=== PATIENT | female | born 1965 ===

== ENCOUNTER 2017-11-23 07:11 | Day surgery (SDC) | payer OTHER ==
[2016-02-07 10:08] VITALS: BMI 29.7
[2017-11-23] MEDS ORDERED: Midazolam 2 MG/2 ML VIAL ONE (09:40)
[2017-11-23] MEDS ORDERED: Propofol 10 mg/ml Inj (20 ML) ONE ×2 (09:40→09:57)
[2017-11-23 10:45] VITALS: TEMP 98.1
[2017-11-23 11:32] VITALS: BP 110/63; PULSE 75; RESP 16; O2SAT 99
== END 2017-11-23 11:27 | disposition home or self-care (01) ==
LOC: C.ENDO 07:11
PROVIDERS: ATTEND Internal Medicine Gastroenterology
DX: Z12.11 Encounter for screening for malignant neoplasm of colon (principal); R10.13 Epigastric pain; R63.4 Abnormal weight loss; K29.70 Gastritis, unspecified, without bleeding; B96.81 Helicobacter pylori [H. pylori] as the cause of diseases classified elsewhere; K64.8 Other hemorrhoids; K31.7 Polyp of stomach and duodenum; E03.9 Hypothyroidism, unspecified; E11.42 Type 2 diabetes mellitus with diabetic polyneuropathy; E78.5 Hyperlipidemia, unspecified; Z79.899 Other long term (current) drug therapy
CPT/HCPCS: 43239; 43251; 45378; 82948; 88305; J2001; J2250; J2704

== ENCOUNTER 2017-12-05 22:02 | Inpatient (IN) | payer OTHER ==
[2017-12-05 22:02] VITALS: BMI 29.7
[2017-12-05] MEDS ORDERED: Sodium Chloride 0.9% 1,000 ML IV ONE (22:39)
[2017-12-05] MEDS ORDERED: Sodium Chloride 0.9% 1,000 ML ONE (22:48)
[2017-12-05 23:17] LABS: BASO % 0.5 % (0.0-2.0); EOS # 0.4 K/uL (0.0-0.7); EOS % 5.5 % (0.0-4.0); HEMOGLOBIN 14.8 g/dL (11.0-16.0); LYMPH # 2.1 K/uL (1.0-4.3); LYMPH % 25.6 % (20.0-40.0); MEAN CELL VOLUME 85.5 fL (81.0-99.0); MEAN CORPUSCULAR HEMOGLOBIN 29.6 pg (27.0-31.0); MEAN CORPUSCULAR HGB CONC 34.7 g/dL (33.0-37.0); MEAN PLATELET VOLUME 9.7 fL (7.2-11.7); MONO # 0.5 K/uL (0.0-0.8); MONO % 6.8 % (0.0-10.0); NEUT # 4.9 K/uL (1.8-7.0); NEUT % 61.6 % (50.0-75.0); NRBC % 0.4 % (0.0-2.0); RBC 4.98 Mil/uL (3.80-5.20)
[2017-12-05 23:27] LABS: ALB/GLOB RATIO 1.5 (1.0-2.1); ALBUMIN 4.6 g/dL (3.5-5.0); ALT/SGPT 46 U/L (9-52); AST/SGOT 28 U/L (14-36); BLOOD UREA NITROGEN 14 mg/dL (7-17); CALCIUM 9.6 mg/dl (8.6-10.4); GFR AFRICAN-AMERICAN > 60; GFR NON-AFRICAN AMERICAN > 60
--- NOTE | 2017-12-05 23:35 | C.PDOC ---
Time Seen by Provider: 12/05/17 22:28 Chief Complaint (Nursing): Chest Pain History Per: Patient, Family Onset/Duration Of Symptoms: Days (about 1 week) Current Symptoms Are (Timing): Still Present Severity: Moderate Quality: "Pain" Associated Symptoms: Dyspnea Modifying Factors: Other Indicated Below Additional History Per: Prior Records Past Medical History Reviewed: Historical Data, Nursing Documentation, Vital Signs Vital Signs: Last Vital Signs Temp 98.2 F 12/05/17 22:06 Pulse 105 H 12/05/17 22:06 Resp 16 12/05/17 22:06 BP 132/92 H 12/05/17 22:06 Pulse Ox 97 12/05/17 23:36 - Medical History PMH: Arthritis, Diabetes, Gastritis, HTN, Hypercholesterolemia, Hypothyroidism, Kidney Stones Surgical History: Appendectomy, Endoscopy - [facility] Procedures CLOSED ENDOSCOPIC BIOPSY OF LARGE INTESTINE (10/03/14) D & C NEC (03/16/01) ESOPHAGOGASTRODUODENOSCOPY [EGD] W/CLOSED BIOPSY (09/26/14) INJECT/INFUSE NEC (04/05/14) LAPAROSCOP LYSIS-PERITONEAL ADHES (06/07/02) OCCUPATIONAL THERAPY (04/23/12) OTH LAPAROSCOP LOCAL EXCIS/DESTRUCT OVARY (03/16/01) OTHER JOINT MOBILIZATION (10/05/12) PHYSICAL THERAPY NEC (04/23/12) Family History: States: Unknown Family Hx - Social History Hx Tobacco Use: No Hx Alcohol Use: No Hx Substance Use: No - Immunization History Hx Tetanus Toxoid Vaccination: Yes Hx Influenza Vaccination: Yes Hx Pneumococcal Vaccination: No Review Of Systems Except As Marked, All Systems Reviewed And Found Negative. Constitutional: Negative for: Fever, Weakness Cardiovascular: Positive for: Chest Pain Respiratory: Negative for: Cough Gastrointestinal: Negative for: Vomiting Musculoskeletal: Negative for: Neck Pain, Back Pain Skin: Negative for: Rash Neurological: Negative for: Weakness, Numbness, Seizures Physical Exam - Physical Exam Appears: Non-toxic, No Acute Distress Skin: Normal Color, Warm, Dry, No Rash Head: Atraumatic, Normacephalic Eye(s): bilateral: Normal Inspection, PERRL, EOMI Neck: Normal ROM, Supple Chest: Symmetrical, No Deformity Cardiovascular: Rhythm Regular Respiratory: Normal Breath Sounds, No Accessory Muscle Use Gastrointestinal/Abdominal: Soft, No Tenderness Back: No CVA Tenderness Extremity: Normal ROM, No Pedal Edema, No Calf Tenderness Neurological/Psych: Oriented x3, Normal Motor, Normal Sensation ED Course And Treatment - Laboratory Results Result Diagrams: 12/05/17 23:07 12/05/17 23:07 Lab Interpretation: Abnormal Interpretation Of Abnormal: Hyperglycemia ECG: Interpreted By Me, Viewed By Me ECG Rhythm: Sinus Rhythm, Nonspecific Changes Rate From EC O2 Sat by Pulse Oximetry: 97 Pulse Ox Interpretation: Normal - Radiology CXR: Interpreted by Me, Viewed By Me CXR Interpretation: Yes: No Acute Disease Progress - Interventions Interventions:: Observation, Intravenous fluid - Medications Administered Oral: Aspirin - Data Reviewed Data Reviewed: Lab, Diagnostic imaging, EKG, Old records - Patient Status Patient status: Partially improved - Continuity of Care Discussed patient case with:: Patient, Family-HIPPA compliant, ED Nurse, Covering for PMD - Patient Plan Patient Plan: Admission, Telemetry Disposition Discussed With DrKennedy: Betty Cunningham (Covering) Comment: He accepted pt on his service and gave admitting orders to the nurse. Doctor Will See Patient In The: Hospital Counseled Patient/Family Regarding: Studies Performed, Diagnosis - Disposition Disposition: HOSPITALIZED Disposition Time: 23:45 Condition: FAIR - POA Present On Arrival: Poor Glycemic Control - Clinical Impression Clinical Impression: Chest pain, Uncontrolled type 2 diabetes mellitus with hyperglycemia
[2017-12-05 23:38] LABS: B-TYPE NATRIURETIC PEPTIDE 20.4 pg/mL (0-900)
[2017-12-06] MEDS: (Novolin R) Insulin Human Regular 100 units/ml vial SC SCH ×4 (06:34→22:28)
--- NOTE | 2017-12-06 07:46 | RAD ---
Chest x-ray single frontal view History: Chest pain. Comparison: 04/01/2012 Findings: Mild venous congestion. Heart size within normal limits. Degenerative and postsurgical changes within the spine. Impression: Mild venous congestion.
[2017-12-06 08:04] LABS: CK-MB 0.38 ng/mL (0.0-3.38)
[2017-12-06] MEDS: Enoxaparin 40 mg Syringe SC SCH ×2 (09:41→17:10)
[2017-12-06] MEDS: GlipiZIDE 10 mg SR Tab PO SCH ×2 (09:42→17:09)
[2017-12-06] MEDS: Levothyroxine 125 MCG TAB PO SCH (09:43)
[2017-12-06] MEDS ORDERED: Home Med 1 UNIT (Omeprazole [Omeprazole] 40 MG) PO SCH (10:00)
[2017-12-06] MEDS ORDERED: CHOLECALCIFEROL PO SCH (10:00)
[2017-12-06] MEDS ORDERED: Home Med 1 UNIT (Atorvastatin [Lipitor] 20 MG) PO SCH (10:00)
[2017-12-06 15:08] LABS: CK-MB 0.43 ng/mL (0.0-3.38)
--- NOTE | 2017-12-06 15:44 | CP.PCM.HP ---
History of Present Illness - History of Present Illness History of Present Illness: COMPREHENSIVE HISTORY & PHYSICAL EXAM Patient is admitted from the emergency room complaining of atypical chest pain for 1 week and high sugars. Patient was seen by her private medical doctor found out patients blood sugar of 600 and referred to the ER. In the emergency room the blood sugar was 537 with no ketones and no acidemia with normal pH. EKG was normal first set of cardiac enzymes negative patient was admitted for further treatment HPI PAST HIST. History of chr-ixbpori-iobjwiupy type 2 diabetes and hypertension PERSONAL HIST: Smoking. N Alcohol. N Allergy N Travel_- . FAMILY HIST : ROS : Constitutional: Negative for weight change, chills, night sweats, fatigue and usage of assist device. Eyes: Negative for redness, swelling, itching, discharge, vision changes, blurry vision, double vision, glaucoma, cataracts, Ears: Negative for hearing loss, ringing, , tinnitus, vertigo Nose: Negative for rhinorrhea, stuffiness, sniffing, itching, postnasal drip, discoloration, nasal congestion and epistaxis. Throat: Negative for throat clearing, sore throat, hoarseness, difficulty swallowing and difficulty speaking. Respiratory: Negative for cough, , sputum production, chest tightness, wheezing, pleuritic chest pain ,daytime somnolence, chronic cough, hemoptysis, snoring at night, Cardiovascular: Negative for, PND, Edema of legs, leg cramps, angina, claudication, , irregular heartbeat, Neurology: Negative for irritability, muscle weakness, numbness and tingling, seizures, tremors, migraines, slurred speech, syncope, memory loss, mood changes , recurrent headaches Gastrointestinal: Negative for difficulty swallowing, diarrhea, constipation, black stools, rectal bleeding, nausea, flatulence, reflux, poor appetite, changes in bowel habits, abdominal pain Genitourinary: Negative for frequent urination, hematuria, discharge, incontinence, urinary retention, frequent UTI, Psychiatric: Negative for depression, anxiety/panic, suicidal tendencies, Musculoskeletal: Negative for swollen joints, back pain, , neck pain, morning stiffness of joints, . Skin: Negative for rash, ulcers, itching, dry skin and pigmented lesions. P/E: Constitutional: Appears stated age and in no apparent distress. Head: Normocephalic. Ears: External ear canals patent without inflammation. Tympanic membranes intact with normal light reflex and landmark. Eyes: Pupils are central, bilaterally equal, symmetrical and reacts to light with normal movements and no icterus or pallor. Nose: External nares are patent. Mucosa is pink Mouth-Throat: Good general appearance and condition. No post-pharyngeal/oropharyngeal erythema and tonsillar hypertrophy. Good dental hygiene. Neck-Lymphatic: Neck is supple with normal ROM, no thyromegaly, lymph nodes or masses. JVD is normal with no carotid bruit. Lungs: Clear to percussion and auscultation with bilateral normal air entry. Cardiovascular: S1 and S2 are normal with no murmurs, gallops and rub. GI Exam: No hepatomegaly. Abdomen is soft and non-tender. No Organomegaly , masses or hernias are evident and bowel sounds are normal and active. Neurology: Higher function and all cranial nerves intact, with no gross motor or sensory deficit. Superficial and deep reflexes are normal with downwards planters. No cerebellar deficit with normal gait. Musculoskeletal: No tender spots with normal curvature of the spine with no swelling or restricted ROM of the small and large joints. Extremities: Homans sign absent. Intact pulses with no pitting edema, calf tenderness or skin color changes. Skin: No rash, eruptions or abnormal skin pigmentation LAB/RADIOLOGY: ASSESMENT : Uncontrolled blood sugars with no acidemia. Atypical chest pain rule out ischemic heart disease PLAN: Cardiac workup, EKG echo and outpatient stress test. Continue [id number]-sih-fkjct insulin coverage and if the sugars are high we will add Lantus Present on Admission - Present on Admission Any Indicators Present on Admission: No Past Patient History - Past Medical History & Family History Past Medical History?: Yes - Past Social History Smoking Status: Never Smoked - CARDIAC Hx Cardiac Disorders: Yes Hx Hypercholesterolemia: Yes Hx Hypertension: Yes - PULMONARY Hx Respiratory Disorders: No - NEUROLOGICAL Hx Neurological Disorder: No - HEENT Hx HEENT Problems: No - RENAL Hx Chronic Kidney Disease: Yes Hx Kidney Stones: Yes - ENDOCRINE/METABOLIC Hx Endocrine Disorders: Yes Hx Diabetes Mellitus Type 2: Yes Hx Hypothyroidism: Yes - HEMATOLOGICAL/ONCOLOGICAL Hx Blood Disorders: No - INTEGUMENTARY Hx Dermatological Problems: No - MUSCULOSKELETAL/RHEUMATOLOGICAL Hx Musculoskeletal Disorders: Yes Hx Arthritis: Yes Hx Back Pain: Yes Hx Falls: No Hx Herniated Disk: Yes - GASTROINTESTINAL Hx Gastrointestinal Disorders: Yes Hx Gastritis: Yes - GENITOURINARY/GYNECOLOGICAL Hx Genitourinary Disorders: No - PSYCHIATRIC Hx Psychophysiologic Disorder: No Hx Substance Use: No - SURGICAL HISTORY Hx Surgeries: Yes Hx Appendectomy: Yes Hx Herniorrhaphy: Yes Hx Joint Replacement: Yes Hx Orthopedic Surgery: Yes - ANESTHESIA Hx Anesthesia: Yes Hx Anesthesia Reactions: No Hx Malignant Hyperthermia: No Meds Allergies/Adverse Reactions: Allergies Allergy/AdvReac Type Severity Reaction Status Date / Time morphine Allergy Intermediate RASH Verified 12/05/17 22:13 Results - Vital Signs Recent Vital Signs: Last Vital Signs Temp 97.6 F 12/06/17 07:00 Pulse 83 12/06/17 07:35 Resp 20 12/06/17 07:00 BP 120/80 12/06/17 07:00 Pulse Ox 99 12/06/17 07:00 - Labs Result Diagrams: 12/05/17 23:07 12/05/17 23:07 Labs: Laboratory Results - last 24 hr 12/05/17 12/05/17 12/05/17 22:19 23:07 23:07 WBC 8.0 RBC 4.98 Hgb 14.8 Hct 42.6 MCV 85.5 MCH 29.6 MCHC 34.7 RDW 13.0 Plt Count 266 MPV 9.7 Neut % (Auto) 61.6 Lymph % (Auto) 25.6 [place] % (Auto) 6.8 Eos % (Auto) 5.5 H Baso % (Auto) 0.5 Neut # (Auto) 4.9 Lymph # (Auto) 2.1 [place] # (Auto) 0.5 Eos # (Auto) 0.4 Baso # (Auto) 0.0 Sodium 141 Potassium 4.0 Chloride 101 Carbon Dioxide 25 Anion Gap 19 BUN 14 Creatinine 0.7 Est GFR ( Amer) > 60 Est GFR (Non-Af Amer) > 60 POC Glucose (mg/dL) 344 H Random Glucose 361 H Calcium 9.6 Total Bilirubin 0.6 AST 28 ALT 46 Alkaline Phosphatase 128 H Total Creatine Kinase CK-MB (Mass) Troponin I < 0.0120 NT-Pro-B Natriuret Pep 20.4 Total Protein 7.6 Albumin 4.6 Globulin 3.1 Albumin/Globulin Ratio 1.5 B-Hydroxybutyrate 0.13 12/06/17 12/06/17 12/06/17 00:17 06:25 07:15 WBC RBC Hgb Hct MCV MCH MCHC RDW Plt Count MPV Neut % (Auto) Lymph % (Auto) [place] % (Auto) Eos % (Auto) Baso % (Auto) Neut # (Auto) Lymph # (Auto) [place] # (Auto) Eos # (Auto) Baso # (Auto) Sodium Potassium Chloride Carbon Dioxide Anion Gap BUN Creatinine Est GFR ( Amer) Est GFR (Non-Af Amer) POC Glucose (mg/dL) 277 H 423 H* Random Glucose Calcium Total Bilirubin AST ALT Alkaline Phosphatase Total Creatine Kinase 37 CK-MB (Mass) 0.38 Troponin I < 0.0120 NT-Pro-B Natriuret Pep Total Protein Albumin Globulin Albumin/Globulin Ratio B-Hydroxybutyrate 12/06/17 12/06/17 11:42 14:41 WBC RBC Hgb Hct MCV MCH MCHC RDW Plt Count MPV Neut % (Auto) Lymph % (Auto) [place] % (Auto) Eos % (Auto) Baso % (Auto) Neut # (Auto) Lymph # (Auto) [place] # (Auto) Eos # (Auto) Baso # (Auto) Sodium Potassium Chloride Carbon Dioxide Anion Gap BUN Creatinine Est GFR ( Amer) Est GFR (Non-Af Amer) POC Glucose (mg/dL) 224 H Random Glucose Calcium Total Bilirubin AST ALT Alkaline Phosphatase Total Creatine Kinase 36 CK-MB (Mass) 0.43 Troponin I < 0.0120 NT-Pro-B Natriuret Pep Total Protein Albumin Globulin Albumin/Globulin Ratio B-Hydroxybutyrate
[2017-12-06] MEDS ORDERED: (Lantus) Insulin Glargine, Recombinant SC SCH (22:00)
[2017-12-07] MEDS: Levothyroxine 125 MCG TAB PO SCH ×2 (07:41→07:43)
[2017-12-07] MEDS: Pantoprazole 40 mg EC Tab PO SCH (09:51)
[2017-12-07] MEDS: Enoxaparin 40 mg Syringe SC SCH (09:51)
[2017-12-07] MEDS: (Novolin R) Insulin Human Regular 100 units/ml vial SC SCH ×4 (09:51→22:29)
[2017-12-07] MEDS: GlipiZIDE 10 mg SR Tab PO SCH ×2 (09:51→18:08)
[2017-12-07] MEDS ORDERED: Ergocalciferol 50,000 Intl Units Cap PO SCH (10:00)
--- NOTE | 2017-12-07 14:26 | CP.PCM.PN ---
Subjective - Date & Time of Evaluation Date of Evaluation: 12/07/17 Time of Evaluation: 14:25 - Subjective Subjective: CHIEF COMPLAINTS TODAY : No further chest pain. ROS. HEENT : N. Resp : No cough, wheezing ,pleuritic CP ,or hemoptysis Cardio : No anginal CP, PND, orthopnea, palpitation GI : No abd.pain, n/v ,diarrhea or GI bleeding . ROENTGENOLOGIST : No headache, vertigo, focal deficit. Musculoskel : No joint swelling , Derm : No rash Psych : Normal affect. Ext : No swelling ,calf pain PE. Pt. is alert awake in no distress. V.S As noted in the chart Head ,ear nose,throat and eyes : Normal. Neck : Supple with normal carotids. Lungs: Clear air entry. Heart : S1 & S2 normal with S4. No murmur. Abd : Soft non tender with normal bowel sounds. Neuro : Moves all ext. with no localized deficit. Ext : No edema with intact pulses.Non tender calves Derm : No rashes or decubitus ulcer. LABS/RADIOLOGY: ASSESSMENT/PLAN : Sugars are still elevated from 250-300 mg/dL. We will increase Lantus and add metformin. Echocardiogram showed normal left ventricular ejection fraction. Will get stress test as an outpatient Objective - Vital Signs/Intake and Output Vital Signs (last 24 hours): Temp Pulse Resp BP Pulse Ox 97.7 F 70 18 112/75 98 12/07/17 07:35 12/07/17 07:35 12/07/17 07:35 12/07/17 07:35 12/07/17 07:35 - Medications Medications: Current Medications Enoxaparin Sodium (Lovenox) 40 mg SC BID [facility] Last Admin: 12/07/17 09:51 Dose: 40 mg Ergocalciferol (Drisdol 50,000 Intl Units Cap) 1 cap PO QWK [facility] Last Admin: 12/07/17 09:51 Dose: 1 cap Gabapentin (Neurontin) 800 mg PO TID [facility] Last Admin: 12/07/17 09:51 Dose: 800 mg Glipizide (Glucotrol Xl) 10 mg PO BID [facility] Last Admin: 12/07/17 09:51 Dose: 10 mg Insulin Glargine (Lantus) 30 unit SC HS [facility] Insulin Human Regular (Novolin R) 0 unit SC ACHS [facility] PRN Reason: Protocol Last Admin: 12/07/17 12:09 Dose: 6 unit Levothyroxine Sodium (Synthroid) 125 mcg PO DAILY@0630 [facility] Last Admin: 12/07/17 07:43 Dose: Not Given Metformin HCl (Glucophage) 850 mg PO BID [facility] Pantoprazole Sodium (Protonix Ec Tab) 40 mg PO DAILY [facility] Last Admin: 12/07/17 09:51 Dose: 40 mg Rosuvastatin Calcium (Crestor) 10 mg PO HS [facility] Last Admin: 12/06/17 22:34 Dose: 10 mg - Labs Labs: 12/05/17 23:07 12/05/17 23:07
[2017-12-07] MEDS ORDERED: Enoxaparin 40 mg Syringe SC SCH (18:00)
[2017-12-07 19:49] VITALS: RESP 20
[2017-12-07] MEDS ORDERED: (Lantus) Insulin Glargine, Recombinant SC SCH (22:00)
[2017-12-08] MEDS: Levothyroxine 125 MCG TAB PO SCH (05:53)
[2017-12-08 08:57] VITALS: BP 115/75; PULSE 75; TEMP 97.8; O2SAT 98
[2017-12-08] MEDS: (Novolin R) Insulin Human Regular 100 units/ml vial SC SCH ×2 (09:22→12:35)
[2017-12-08] MEDS: GlipiZIDE 10 mg SR Tab PO SCH (09:23)
[2017-12-08] MEDS: Pantoprazole 40 mg EC Tab PO SCH (09:23)
[2017-12-08] MEDS ORDERED: Enoxaparin 40 mg Syringe SC SCH (10:00)
--- NOTE | 2017-12-08 11:38 | CARD ---
APPROVED REPORT Date of service: 12/05/2017 EKG Measurement Heart [id number] <Conclusion> Sinus tachycardia Otherwise, normal EKG
--- NOTE | 2017-12-08 13:49 | CP.PCM.DIS ---
Provider - Provider Date of Admission: 12/05/17 23:46 Attending physician: Betty Cunningham MD Time Spent in preparation of Discharge (in minutes): 35 Hospital Course - Lab Results Lab Results: Most Recent Lab Values WBC 8.0 K/uL (4.8-10.8) 12/05/17 23:07 RBC 4.98 Mil/uL (3.80-5.20) 12/05/17 23:07 Hgb 14.8 g/dL (11.0-16.0) 12/05/17 23:07 Hct 42.6 % (34.0-47.0) 12/05/17 23:07 MCV 85.5 fL (81.0-99.0) 12/05/17 23:07 MCH 29.6 pg (27.0-31.0) 12/05/17 23:07 MCHC 34.7 g/dL (33.0-37.0) 12/05/17 23:07 RDW 13.0 % (11.5-14.5) 12/05/17 23:07 Plt Count 266 K/uL (130-400) 12/05/17 23:07 MPV 9.7 fL (7.2-11.7) 12/05/17 23:07 Neut % (Auto) 61.6 % (50.0-75.0) 12/05/17 23:07 Lymph % (Auto) 25.6 % (20.0-40.0) 12/05/17 23:07 [place] % (Auto) 6.8 % (0.0-10.0) 12/05/17 23:07 Eos % (Auto) 5.5 % (0.0-4.0) H 12/05/17 23:07 Baso % (Auto) 0.5 % (0.0-2.0) 12/05/17 23:07 Neut # (Auto) 4.9 K/uL (1.8-7.0) 12/05/17 23:07 Lymph # (Auto) 2.1 K/uL (1.0-4.3) 12/05/17 23:07 [place] # (Auto) 0.5 K/uL (0.0-0.8) 12/05/17 23:07 Eos # (Auto) 0.4 K/uL (0.0-0.7) 12/05/17 23:07 Baso # (Auto) 0.0 K/uL (0.0-0.2) 12/05/17 23:07 Sodium 141 mmol/L (132-148) 12/05/17 23:07 Potassium 4.0 mmol/L (3.6-5.2) 12/05/17 23:07 Chloride 101 mmol/L (98-107) 12/05/17 23:07 Carbon Dioxide 25 mmol/L (22-30) 12/05/17 23:07 Anion Gap 19 (10-20) 12/05/17 23:07 BUN 14 mg/dL (7-17) 12/05/17 23:07 Creatinine 0.7 mg/dL (0.7-1.2) 12/05/17 23:07 Est GFR ( Amer) > 60 12/05/17 23:07 Est GFR (Non-Af Amer) > 60 12/05/17 23:07 POC Glucose (mg/dL) 309 mg/dL (65-110) H 12/08/17 11:20 Random Glucose 361 mg/dL (65-105) H 12/05/17 23:07 Calcium 9.6 mg/dl (8.6-10.4) 12/05/17 23:07 Total Bilirubin 0.6 mg/dL (0.2-1.3) 12/05/17 23:07 AST 28 U/L (14-36) 12/05/17 23:07 ALT 46 U/L (9-52) 12/05/17 23:07 Alkaline Phosphatase 128 U/L (38-126) H 12/05/17 23:07 Total Creatine Kinase 36 U/L (30-135) 12/06/17 14:41 CK-MB (Mass) 0.43 ng/mL (0.0-3.38) 12/06/17 14:41 Troponin I < 0.0120 ng/mL (0.00-0.120) 12/06/17 14:41 NT-Pro-B Natriuret Pep 20.4 pg/mL (0-900) 12/05/17 23:07 Total Protein 7.6 g/dL (6.3-8.3) 07/14/18 23:07 Albumin 4.6 g/dL (3.5-5.0) 12/05/17 23:07 Globulin 3.1 gm/dL (2.2-3.9) 12/05/17 23:07 Albumin/Globulin Ratio 1.5 (1.0-2.1) 12/05/17 23:07 B-Hydroxybutyrate 0.13 mM (0.02-0.27) 12/05/17 23:07 - Hospital Course Hospital Course: Patient is admitted from the emergency room complaining of atypical chest pain for 1 week and high sugars. Patient was seen by her private medical doctor found out patients blood sugar of 600 and referred to the ER. In the emergency room the blood sugar was 537 with no ketones and no acidemia with normal pH. EKG was normal first set of cardiac enzymes negative patient was admitted for further treatment 3 sets of cardiac enzymes were negative. Echocardiogram showed normal left atrial systolic function with no wall motion abnormality. Patient's blood sugars were maintained on sliding scale insulin, Lantus. Prior to discharge patient was stable no further chest pain. Patient was advised to continue using her insulin and to go on a sliding scale according to the sugar and continue oral diabetic medication. Patient was also advised to obtain a stress test to rule out coronary artery disease. Patient will be followed by her PMD on an outpatient. Discharge Plan - Follow Up Plan Condition: FAIR Disposition: HOME/ ROUTINE
--- NOTE | 2017-12-08 17:43 | CARD ---
APPROVED REPORT Date of service: 12/07/2017 EKG Measurement Heart [id number] <Conclusion> Normal sinus rhythm Possible Left atrial enlargement Prolonged QT Abnormal ECG
--- NOTE | 2017-12-09 06:02 | CARD ---
APPROVED REPORT Date of service: 12/07/2017 EXAM: Two-dimensional and M-mode echocardiogram with Doppler and color Doppler. Other Information Quality : GoodRhythm : INDICATION Cardiac Disease: CAD RISK FACTORS Hypertension Diabetes 2D DIMENSIONS IVSd0.8 (0.7-1.1cm)LVDd4.3 (3.9-5.9cm) PWd1.0 (0.7-1.1cm)LVDs2.9 (2.5-4.0cm) FS (%) 33.6 %LVEF (%)62.6 (>50%) M-Mode DIMENSIONS RVDd2.46 (2.1-3.2cm)Left Atrium (MM)3.20 (2.5-4.0cm) IVSd0.64 (0.7-1.1cm)Aortic Root2.71 (2.2-3.7cm) LVDd4.10 (4.0-5.6cm)Aortic Cusp Exc.2.07 (1.5-2.0cm) PWd1.37 (0.7-1.1cm)FS (%) 33 % LVDs2.73 (2.0-3.8cm)LVEF (%)62 (>50%) Mitral Valve MV E Gqcxkskq48.9cm/sMV A Mzymktdp92.7cm/sE/A ratio0.9 TDI E/Lateral E'0.0E/Medial E'0.0 Tricuspid Valve TR Peak Lghaklft068of/sTR Peak Gr.[id number] LEFT VENTRICLE The left ventricle is normal size. There is normal left ventricular wall thickness. Left ventricle systolic function is normal. The Ejection Fraction is 60-65%. There is normal LV segmental wall motion. Tissue Doppler imaging reveals abnormal left ventricular diastolic dysfunction. RIGHT VENTRICLE The right ventricle is normal size. There is normal right ventricular wall thickness. The right ventricular systolic function is normal. ATRIA The left atrium size is normal. The right atrium size is normal. The interatrial septum is intact with no evidence for an atrial septal defect. AORTIC VALVE The aortic valve is normal in structure. No aortic regurgitation is present. There is no aortic valvular stenosis. There is no aortic valvular vegetation. MITRAL VALVE The mitral valve is normal in structure. There is no evidence of mitral valve prolapse. There is no mitral valve stenosis. Mitral regurgitation is mild. TRICUSPID VALVE The tricuspid valve is normal in structure. There is trace to mild tricuspid regurgitation. Right ventricular systolic pressure is estimated at less than 30 mmHg. There is no pulmonary hypertension. PULMONIC VALVE The pulmonic valve is not well visualized. There is mild pulmonic valvular regurgitation. GREAT VESSELS The aortic root is normal in size. PERICARDIAL EFFUSION There is no significant pericardial effusion. <Conclusion> Left ventricle systolic function is normal. The Ejection Fraction is 60-65%. Diastolic dysfunction. No aortic regurgitation is present. Mitral regurgitation is mild. There is trace to mild tricuspid regurgitation. There is no pulmonary hypertension. There is mild pulmonic valvular regurgitation.
== END 2017-12-08 14:24 | disposition home or self-care (01) | DRG 294 ==
LOC: C.ER 22:02 → C.9E 23:46 → C.6T 12-06 00:24
PROVIDERS: ADMIT Internal Medicine Cardiovascular Disease; ATTEND Internal Medicine Cardiovascular Disease
DX: E11.65 Type 2 diabetes mellitus with hyperglycemia (principal); N18.9 Chronic kidney disease, unspecified; I12.9 Hypertensive chronic kidney disease with stage 1 through stage 4 chronic kidney disease, or unspecified chronic kidney disease; E03.9 Hypothyroidism, unspecified; R07.89 Other chest pain; E11.22 Type 2 diabetes mellitus with diabetic chronic kidney disease; E78.00 Pure hypercholesterolemia, unspecified; Z79.4 Long term (current) use of insulin

== ENCOUNTER 2018-10-15 13:55 | Emergency (ER) | payer OTHER | END 2018-10-15 19:22 | disposition home or self-care (01) | LOC: C.ER 13:55 ==